=== PATIENT | male | born 1940 ===

== ENCOUNTER 2020-05-05 16:46 | Inpatient (IN) ==
[2020-05-05] MEDS ORDERED: SODIUM CHLORIDE 0.9% 1,000 ML IV STA ×2 (17:11→18:07)
[2020-05-05 17:27] LABS: Basophils % 0.4 % (0.0-0.8); Eosinophils # 0.2 10*3/uL (0.0-0.87); Eosinophils % 2.4 % (0.00-10.9); Hemoglobin 12.4 GM/DL (14.0-18.0); Immature Granulocytes % 0.4 %; Immature Granulocytes Absolute 0.03 #; Lymphocytes # 2.2 10*3/uL (1.4-4.0); Lymphocytes % 26.3 % (21.2-54.2); Mean Corpuscular HGB Conc 33.5 GM/DL (32-36); Mean Corpuscular Volume 97.1 FL (87-102); Mean Platelet Volume 10.2 FL (9.6-12.0); Monocytes % 9.7 % (1.7-12.7); Neutrophils % 60.8 % (38.7-73.9); Platelet Count 220 T/CUMM (130-400); Red Blood Count 3.81 MC/CUMM (3.8-5.5); Red Cell Distribution Width 14.5 % (9.3-17.3); White Blood Count 8.5 T/CUMM (4-12)
[2020-05-05 17:49] LABS: Albumin 3.3 G/DL (3.4-5.0); Bilirubin,Total 0.7 MG/DL (0.2-1.0); Calcium 9.2 MG/DL (8.5-10.1); Osmolality,Calculated 324.7 MOS/KG (273-304); Potassium 4.4 MMOL/L (3.5-5.1); Total Protein 7.1 G/DL (6.4-8.3)
[2020-05-05] MEDS ORDERED: NOREPINEPHRINE 8 MG in SODIUM CHLORIDE 0.9% 242 ML IV SCH (18:00)
[2020-05-05] MEDS ORDERED: ONDANSETRON 4 MG/2 ML VIAL IV PRN (18:11)
[2020-05-05] MEDS ORDERED: LACTATED RINGERS 2,000 ML IV ONE (18:15)
[2020-05-05] MEDS: SODIUM BICARB INJ 150 MEQ in DEXTROSE 5% 850 ML IV SCH (19:28)
[2020-05-06 00:43] LABS: Bacteria,Urine Many /HPF (Few); Bilirubin,Urine Negative (Negative); Blood, Urine Moderate mg/dL (Negative); Glucose,Urine (UA) Negative (Negative); Hyaline Casts,Urine 68 /LPF (0-3); Ketones,Urine Negative (Negative); Mucus,Urine Occasional /LPF (Occasional); Nitrite,Urine Negative (Negative); Protein,Urine 30 MG/DL; RBC,Urine 8 /HPF (0-4); Urine Appearance CLOUDY (Clear); Urine Color Yellow (Yellow); Urine Specific Gravity 1.015 (1.001-1.035); Urine Urobilinogen < 2.0 EU/DL (0.2-1.0); WBC,Urine 728 /HPF (0-6)
[2020-05-06] MEDS: SODIUM BICARB INJ 150 MEQ in DEXTROSE 5% 850 ML IV SCH ×3 (02:52→09:58)
[2020-05-06 05:38] LABS: Basophils % 0.4 % (0.0-0.8); Eosinophils # 0.3 10*3/uL (0.0-0.87); Eosinophils % 3.7 % (0.00-10.9); Hematocrit 31.8 VOL% (42.0-52.0); Hemoglobin 11.1 GM/DL (14.0-18.0); Immature Granulocytes % 0.4 %; Immature Granulocytes Absolute 0.03 #; Lymphocytes # 2.2 10*3/uL (1.4-4.0); Lymphocytes % 29.7 % (21.2-54.2); Mean Corpuscular HGB Conc 34.9 GM/DL (32-36); Mean Corpuscular Volume 93.3 FL (87-102); Mean Platelet Volume 10.1 FL (9.6-12.0); Monocytes % 10.3 % (1.7-12.7); Neutrophils % 55.5 % (38.7-73.9); Platelet Count 175 T/CUMM (130-400); Red Blood Count 3.41 MC/CUMM (3.8-5.5); Red Cell Distribution Width 14.2 % (9.3-17.3); White Blood Count 7.4 T/CUMM (4-12)
[2020-05-06 05:48] LABS: INR 1.1; PT Patient Result 11.9 SECS (9.8-11.9)
[2020-05-06 06:21] LABS: Albumin 2.4 G/DL (3.4-5.0); Bilirubin,Total 0.5 MG/DL (0.2-1.0); Calcium 8.1 MG/DL (8.5-10.1); Osmolality,Calculated 326.8 MOS/KG (273-304); Total Protein 5.8 G/DL (6.4-8.3)
[2020-05-06] MEDS: PANTOPRAZOLE 40 MG TABLET PO SCH (09:13)
[2020-05-06] MEDS ORDERED: POTASSIUM CHLORIDE 20 MEQ TABLET PO ONE (12:17)
[2020-05-06] MEDS: LACTATED RINGERS 1,000 ML IV SCH ×3 (16:00→22:45)
[2020-05-07] MEDS: LACTATED RINGERS 1,000 ML IV SCH ×2 (07:26→09:25)
[2020-05-07 07:38] LABS: Basophils % 0.1 % (0.0-0.8); Eosinophils # 0.3 10*3/uL (0.0-0.87); Eosinophils % 4.6 % (0.00-10.9); Hematocrit 30.4 VOL% (42.0-52.0); Hemoglobin 10.1 GM/DL (14.0-18.0); Immature Granulocytes % 0.3 %; Immature Granulocytes Absolute 0.02 #; Lymphocytes # 2.1 10*3/uL (1.4-4.0); Lymphocytes % 28.5 % (21.2-54.2); Mean Corpuscular HGB Conc 33.2 GM/DL (32-36); Mean Corpuscular Volume 97.4 FL (87-102); Mean Platelet Volume 10.3 FL (9.6-12.0); Monocytes % 10.4 % (1.7-12.7); Neutrophils % 56.1 % (38.7-73.9); Platelet Count 200 T/CUMM (130-400); Red Blood Count 3.12 MC/CUMM (3.8-5.5); Red Cell Distribution Width 14.4 % (9.3-17.3); White Blood Count 7.2 T/CUMM (4-12)
[2020-05-07 08:08] LABS: Uric Acid 13.7 MG/DL (3.5-7.2)
[2020-05-07 08:09] LABS: Albumin 2.4 G/DL (3.4-5.0); Bilirubin,Total 1.7 MG/DL (0.2-1.0); Calcium 8.3 MG/DL (8.5-10.1); Osmolality,Calculated 315.6 MOS/KG (273-304); Potassium 3.1 MMOL/L (3.5-5.1); Total Protein 5.8 G/DL (6.4-8.3)
[2020-05-07] MEDS: PANTOPRAZOLE 40 MG TABLET PO SCH (08:59)
[2020-05-07] MEDS: cefTRIAXone 1,000 MG in SYRINGE 1 EACH IV SCH (08:59)
[2020-05-07] MEDS ORDERED: POTASSIUM CHLORIDE 20 MEQ TABLET PO ONE (09:45)
[2020-05-07 10:09] LABS: % Iron Saturation 19.8 % (18-50); Ferritin 805.1 ng/ml (26-388)
[2020-05-07 10:14] LABS: Free T4 (Free Thyroxine) 1.26 NG/DL (0.76-1.46); Thyroid Stimulating Hormone 1.83 uIU/ml (0.358-3.74)
[2020-05-07 10:17] LABS: Folate 5.7 NG/ML (5.38-24.0)
[2020-05-07] MEDS: SODIUM CHLORIDE 0.45% 1,000 ML IV SCH ×2 (10:54→21:05)
[2020-05-07] MEDS: ENOXAPARIN 30 MG/0.3 ML SYRINGE SUBCUT SCH (10:54)
[2020-05-08 07:01] LABS: Basophils % 0.3 % (0.0-0.8); Eosinophils # 0.5 10*3/uL (0.0-0.87); Eosinophils % 5.9 % (0.00-10.9); Hematocrit 28.6 VOL% (42.0-52.0); Hemoglobin 9.4 GM/DL (14.0-18.0); Immature Granulocytes % 0.3 %; Immature Granulocytes Absolute 0.03 #; Lymphocytes # 2.7 10*3/uL (1.4-4.0); Lymphocytes % 29.7 % (21.2-54.2); Mean Corpuscular HGB Conc 32.9 GM/DL (32-36); Mean Corpuscular Volume 99.3 FL (87-102); Mean Platelet Volume 10.5 FL (9.6-12.0); Monocytes % 9.3 % (1.7-12.7); Neutrophils % 54.5 % (38.7-73.9); Platelet Count 195 T/CUMM (130-400); Red Blood Count 2.88 MC/CUMM (3.8-5.5); Red Cell Distribution Width 14.5 % (9.3-17.3)
[2020-05-08 07:23] LABS: Calcium 7.6 MG/DL (8.5-10.1); Osmolality,Calculated 297.8 MOS/KG (273-304); Potassium 3.1 MMOL/L (3.5-5.1)
[2020-05-08] MEDS: PANTOPRAZOLE 40 MG TABLET PO SCH (08:34)
[2020-05-08] MEDS: cefTRIAXone 1,000 MG in SYRINGE 1 EACH IV SCH (08:35)
[2020-05-08] MEDS ORDERED: MAGNESIUM SULF RIDER 2 GM in PREMIX 1 EACH IV PRN (11:17)
[2020-05-08] MEDS ORDERED: MAGNESIUM SULF RIDER 4 GM in PREMIX 1 EACH IV PRN (11:17)
[2020-05-08] MEDS: ENOXAPARIN 30 MG/0.3 ML SYRINGE SUBCUT SCH (11:52)
[2020-05-08] MEDS: SODIUM CHLORIDE 0.45% 1,000 ML IV SCH ×2 (11:52→19:41)
[2020-05-08] MEDS: POTASSIUM CHLORIDE 20 MEQ TABLET PO PRN (11:58)
[2020-05-09 07:48] LABS: Basophils % 0.3 % (0.0-0.8); Eosinophils # 0.6 10*3/uL (0.0-0.87); Eosinophils % 6.4 % (0.00-10.9); Immature Granulocytes % 0.4 %; Immature Granulocytes Absolute 0.04 #; Lymphocytes # 2.7 10*3/uL (1.4-4.0); Lymphocytes % 28.9 % (21.2-54.2); Mean Corpuscular HGB Conc 32.3 GM/DL (32-36); Mean Corpuscular Volume 100.3 FL (87-102); Mean Platelet Volume 10.1 FL (9.6-12.0); Monocytes % 9.6 % (1.7-12.7); Neutrophils % 54.4 % (38.7-73.9); Platelet Count 226 T/CUMM (130-400); Red Blood Count 3.09 MC/CUMM (3.8-5.5); Red Cell Distribution Width 14.4 % (9.3-17.3); White Blood Count 9.3 T/CUMM (4-12)
[2020-05-09 08:18] LABS: Albumin 2.3 G/DL (3.4-5.0); Bilirubin,Total 0.8 MG/DL (0.2-1.0); Calcium 7.6 MG/DL (8.5-10.1); Osmolality,Calculated 285.1 MOS/KG (273-304); Potassium 3.2 MMOL/L (3.5-5.1); Total Protein 5.7 G/DL (6.4-8.3)
[2020-05-09] MEDS: POTASSIUM PHOS/SOD PHOS POWDER 250 MG PACK PO SCH ×3 (08:23→21:14)
[2020-05-09] MEDS: cefTRIAXone 1,000 MG in SYRINGE 1 EACH IV SCH (08:23)
[2020-05-09] MEDS: ENOXAPARIN 30 MG/0.3 ML SYRINGE SUBCUT SCH (08:23)
[2020-05-09] MEDS: PANTOPRAZOLE 40 MG TABLET PO SCH (08:24)
[2020-05-09] MEDS: POTASSIUM CHLORIDE 20 MEQ TABLET PO PRN (08:28)
[2020-05-09] MEDS ORDERED: MAGNESIUM SULF RIDER 4 GM in PREMIX 1 EACH IV ONE (11:00)
[2020-05-09] MEDS: POTASSIUM CHLORIDE 20 MEQ TABLET PO SCH ×3 (12:36→21:14)
[2020-05-09] MEDS: SODIUM CHLORIDE 0.45% 1,000 ML IV SCH (17:46)
[2020-05-09 19:58] LABS: Calcium 7.9 MG/DL (8.5-10.1); Osmolality,Calculated 286.1 MOS/KG (273-304); Potassium 3.9 MMOL/L (3.5-5.1)
[2020-05-09] MEDS: HYDROCORTISONE 2.5% RECTAL CREAM 30 GM TUBE TOP PRN (21:13)
[2020-05-10 05:46] LABS: Basophils % 0.5 % (0.0-0.8); Eosinophils # 0.5 10*3/uL (0.0-0.87); Eosinophils % 5.7 % (0.00-10.9); Hematocrit 29.7 VOL% (42.0-52.0); Hemoglobin 9.5 GM/DL (14.0-18.0); Immature Granulocytes % 0.3 %; Immature Granulocytes Absolute 0.03 #; Lymphocytes # 2.9 10*3/uL (1.4-4.0); Lymphocytes % 32.9 % (21.2-54.2); Mean Corpuscular Volume 102.1 FL (87-102); Mean Platelet Volume 10.2 FL (9.6-12.0); Monocytes % 9.8 % (1.7-12.7); Neutrophils % 50.8 % (38.7-73.9); Platelet Count 270 T/CUMM (130-400); Red Blood Count 2.91 MC/CUMM (3.8-5.5); Red Cell Distribution Width 14.7 % (9.3-17.3); White Blood Count 8.7 T/CUMM (4-12)
[2020-05-10] MEDS: HYDROCORTISONE 2.5% RECTAL CREAM 30 GM TUBE TOP PRN ×2 (06:33→17:11)
[2020-05-10] MEDS: cefTRIAXone 1,000 MG in SYRINGE 1 EACH IV SCH (09:40)
[2020-05-10] MEDS: ENOXAPARIN 30 MG/0.3 ML SYRINGE SUBCUT SCH (09:40)
[2020-05-10] MEDS: PANTOPRAZOLE 40 MG TABLET PO SCH (09:41)
[2020-05-10] MEDS: POTASSIUM PHOS/SOD PHOS POWDER 250 MG PACK PO SCH ×3 (09:41→20:55)
[2020-05-10] MEDS ORDERED: MORPHINE 4 MG/1 ML VIAL IV PRN (21:58)
[2020-05-11 04:57] LABS: Basophils % 0.3 % (0.0-0.8); Eosinophils # 0.6 10*3/uL (0.0-0.87); Eosinophils % 5.8 % (0.00-10.9); Hematocrit 30.5 VOL% (42.0-52.0); Hemoglobin 9.5 GM/DL (14.0-18.0); Immature Granulocytes % 0.6 %; Immature Granulocytes Absolute 0.06 #; Lymphocytes % 31.1 % (21.2-54.2); Mean Corpuscular HGB Conc 31.1 GM/DL (32-36); Mean Corpuscular Volume 104.1 FL (87-102); Mean Platelet Volume 10.5 FL (9.6-12.0); Neutrophils % 51.2 % (38.7-73.9); Platelet Count 274 T/CUMM (130-400); Red Blood Count 2.93 MC/CUMM (3.8-5.5); Red Cell Distribution Width 14.6 % (9.3-17.3); White Blood Count 9.7 T/CUMM (4-12)
[2020-05-11 05:27] LABS: Potassium 4.1 MMOL/L (3.5-5.1)
[2020-05-11] MEDS: cefTRIAXone 1,000 MG in SYRINGE 1 EACH IV SCH (08:25)
[2020-05-11] MEDS: PANTOPRAZOLE 40 MG TABLET PO SCH (08:26)
[2020-05-11] MEDS: POTASSIUM PHOS/SOD PHOS POWDER 250 MG PACK PO SCH ×3 (08:26→20:10)
[2020-05-11] MEDS ORDERED: BISACODYL 5 MG TABLET PO ONE (12:00)
[2020-05-11] MEDS ORDERED: LIDOCAINE 2% 5 ML VIAL ONE (12:49)
[2020-05-11] MEDS ORDERED: propofoL 200 MG/20 ML VIAL IV ONE (12:49)
[2020-05-11] MEDS ORDERED: PHENYLEPHRINE 1 MG/10 ML SYRINGE IV ONE (12:51)
[2020-05-11] MEDS ORDERED: POLYETHYLENE GLYCOL POWDER 255 GM BOTTLE PO ONE (18:00)
[2020-05-11] MEDS: ACETAMINOPHEN 325 MG TABLET PO PRN (20:10)
[2020-05-12 05:43] LABS: INR 1.1; PT Patient Result 11.7 SECS (9.8-11.9)
[2020-05-12] MEDS ORDERED: LACTATED RINGERS 1,000 ML IV SCH ×2 (08:00)
[2020-05-12] MEDS: cefTRIAXone 1,000 MG in SYRINGE 1 EACH IV SCH (08:49)
[2020-05-12] MEDS ORDERED: LIDOCAINE 2% 5 ML VIAL ONE (13:07)
[2020-05-12] MEDS ORDERED: ETOMIDATE 20 MG/10 ML VIAL IV ONE (13:07)
[2020-05-12] MEDS ORDERED: propofoL 200 MG/20 ML VIAL IV ONE (13:07)
[2020-05-12] MEDS ORDERED: PHENYLEPHRINE 1 MG/10 ML SYRINGE IV ONE (13:07)
[2020-05-12] MEDS: PANTOPRAZOLE 40 MG TABLET PO SCH (14:35)
[2020-05-12] MEDS: POTASSIUM PHOS/SOD PHOS POWDER 250 MG PACK PO SCH ×3 (14:35→21:10)
[2020-05-12] MEDS ORDERED: DILTIAZEM INJ 100 MG in SODIUM CHLORIDE 0.9% 100 ML IV SCH (16:00)
[2020-05-12] MEDS ORDERED: SODIUM CHLORIDE 0.9% 500 ML IV ONE (16:00)
[2020-05-12 16:51] LABS: Basophils % 0.3 % (0.0-0.8); Eosinophils # 0.3 10*3/uL (0.0-0.87); Eosinophils % 3.1 % (0.00-10.9); Hematocrit 31.7 VOL% (42.0-52.0); Hemoglobin 10.1 GM/DL (14.0-18.0); Immature Granulocytes % 0.6 %; Immature Granulocytes Absolute 0.07 #; Lymphocytes # 4.6 10*3/uL (1.4-4.0); Lymphocytes % 40.9 % (21.2-54.2); Mean Corpuscular HGB Conc 31.9 GM/DL (32-36); Monocytes % 9.7 % (1.7-12.7); Neutrophils % 45.4 % (38.7-73.9); Platelet Count 251 T/CUMM (130-400); Red Blood Count 3.02 MC/CUMM (3.8-5.5); Red Cell Distribution Width 14.5 % (9.3-17.3); White Blood Count 11.1 T/CUMM (4-12)
[2020-05-12 17:06] LABS: Calcium 8.9 MG/DL (8.5-10.1); Osmolality,Calculated 285.4 MOS/KG (273-304)
[2020-05-12] MEDS ORDERED: MAGNESIUM SULF RIDER 4 GM in PREMIX 1 EACH IV PRN (17:08)
[2020-05-12] MEDS ORDERED: MAGNESIUM SULF RIDER 2 GM in PREMIX 1 EACH IV PRN (17:08)
[2020-05-12] MEDS ORDERED: HEPARIN DRIP 25,000 UNITS/500 ML PREMIX IV SCH (17:30)
[2020-05-12] MEDS: SODIUM CHLORIDE 0.9% 1,000 ML IV SCH (17:44)
[2020-05-12] MEDS: ACETAMINOPHEN 325 MG TABLET PO PRN (17:45)
[2020-05-12] MEDS ORDERED: DIGOXIN 0.5 MG/2 ML AMP IV ONE (20:23)
[2020-05-13 00:52] LABS: Basophils % 0.4 % (0.0-0.8); Eosinophils % 0.4 % (0.00-10.9); Hematocrit 28.8 VOL% (42.0-52.0); Hemoglobin 9.4 GM/DL (14.0-18.0); Immature Granulocytes % 0.8 %; Immature Granulocytes Absolute 0.06 #; Lymphocytes # 1.8 10*3/uL (1.4-4.0); Lymphocytes % 22.8 % (21.2-54.2); Mean Corpuscular HGB Conc 32.6 GM/DL (32-36); Mean Corpuscular Volume 101.4 FL (87-102); Monocytes % 10.2 % (1.7-12.7); Neutrophils % 65.4 % (38.7-73.9); Platelet Count 225 T/CUMM (130-400); Red Blood Count 2.84 MC/CUMM (3.8-5.5); Red Cell Distribution Width 14.6 % (9.3-17.3); White Blood Count 7.9 T/CUMM (4-12)
[2020-05-13 01:03] LABS: INR 1.1; PT Patient Result 12.1 SECS (9.8-11.9); Partial Thromboplastin Time 71.7 SECS (23.9-33.8)
[2020-05-13 01:09] LABS: Alanine Aminotransferase 33 U/L (16-61); Albumin 2.3 G/DL (3.4-5.0); Alkaline Phosphatase 57 U/L (45-117); Aspartate Amino Transferase 29 U/L (0-37); Bilirubin,Total < 0.39 MG/DL (0.2-1.0); Blood Urea Nitrogen 28 MG/DL (7-18); Calcium 8.2 MG/DL (8.5-10.1); Carbon Dioxide 18 MMOL/L (21-32); Estimated Glom Filtration Rate 48 ML/MIN; Glucose 109 MG/DL (74-106); Osmolality,Calculated 285.4 MOS/KG (273-304); Potassium 4.9 MMOL/L (3.5-5.1); Sodium 140 MMOL/L (136-145); Total Protein 5.9 G/DL (5.0-7.5)
[2020-05-13] MEDS: SODIUM CHLORIDE 0.9% 1,000 ML IV SCH ×3 (02:34→18:06)
[2020-05-13 07:49] LABS: INR 1.2; PT Patient Result 12.4 SECS (9.8-11.9)
[2020-05-13 07:51] LABS: Partial Thromboplastin Time 102.2 SECS (23.9-33.8)
[2020-05-13] MEDS: PANTOPRAZOLE 40 MG TABLET PO SCH (08:52)
[2020-05-13] MEDS: POTASSIUM PHOS/SOD PHOS POWDER 250 MG PACK PO SCH ×3 (08:52→21:06)
[2020-05-13] MEDS: cefTRIAXone 1,000 MG in SYRINGE 1 EACH IV SCH (08:53)
[2020-05-13] MEDS ORDERED: POTASSIUM CHLORIDE RIDER 10 MEQ in PREMIX 1 EACH IV PRN (09:37)
[2020-05-13] MEDS ORDERED: MAGNESIUM SULF RIDER 2 GM in PREMIX 1 EACH IV PRN (09:37)
[2020-05-13] MEDS ORDERED: DIAZEPAM 5 MG TABLET PO ONE (09:37)
[2020-05-13] MEDS ORDERED: diphenhydrAMINE CAP 50 MG CAPSULE PO ONE (09:37)
[2020-05-13] MEDS ORDERED: ALBUTEROL 2.5 MG/3 ML NEB RESP TX PRN (10:05)
[2020-05-13] MEDS ORDERED: methylPREDNISolone SOD SUC 125 MG/2 ML VIAL IV ONE (10:05)
[2020-05-13 10:27] LABS: Hematocrit 30.1 VOL% (42.0-52.0); Hemoglobin 9.4 GM/DL (14.0-18.0)
[2020-05-13] MEDS ORDERED: LIDOCAINE 1% 20 ML VIAL ONE (10:37)
[2020-05-13] MEDS ORDERED: MIDAZOLAM 2 MG/2 ML VIAL ONE (10:47)
[2020-05-13] MEDS ORDERED: HYDROmorphone 2 MG/1 ML VIAL ONE (10:48)
[2020-05-13] MEDS ORDERED: PHENYLEPHRINE 50 MG/5 ML VIAL ONE (12:01)
[2020-05-13] MEDS ORDERED: PHENYLEPHRINE DRIP 40 MG/250 ML PREMIX IV PRN (12:06)
[2020-05-13] MEDS ORDERED: SODIUM CHLORIDE 0.9% 1,000 ML IV PRN (12:53)
[2020-05-13] MEDS: APIXABAN 5 MG TABLET PO SCH ×2 (14:55→21:01)
[2020-05-13 15:02] LABS: Hematocrit 28.9 VOL% (42.0-52.0); Hemoglobin 8.8 GM/DL (14.0-18.0)
[2020-05-13] MEDS ORDERED: DIGOXIN 0.5 MG/2 ML AMP IV ONE (15:45)
[2020-05-13] MEDS ORDERED: DILTIAZEM INJ 100 MG in SODIUM CHLORIDE 0.9% 100 ML IV SCH (16:00)
[2020-05-13] MEDS ORDERED: APIXABAN 5 MG TABLET PO SCH (16:00)
[2020-05-13] MEDS: ASCORBIC ACID 500 MG TABLET PO SCH ×2 (16:07→21:01)
[2020-05-13 22:35] LABS: Hematocrit 31.4 VOL% (42.0-52.0); Hemoglobin 9.2 GM/DL (14.0-18.0)
[2020-05-14] MEDS: SODIUM CHLORIDE 0.9% 1,000 ML IV SCH ×2 (01:56→15:21)
[2020-05-14 03:54] LABS: Hematocrit 27.7 VOL% (42.0-52.0); Immature Granulocytes % 0.6 %; Immature Granulocytes Absolute 0.04 #; Lymphocytes # 1.1 10*3/uL (1.4-4.0); Lymphocytes % 15.4 % (21.2-54.2); Mean Corpuscular HGB Conc 28.9 GM/DL (32-36); Mean Corpuscular Volume 112.6 FL (87-102); Mean Platelet Volume 10.1 FL (9.6-12.0); Monocytes % 5.1 % (1.7-12.7); Neutrophils % 78.9 % (38.7-73.9); Platelet Count 215 T/CUMM (130-400); Red Blood Count 2.46 MC/CUMM (3.8-5.5); Red Cell Distribution Width 14.6 % (9.3-17.3); White Blood Count 7.2 T/CUMM (4-12)
[2020-05-14 04:17] LABS: Hypochromasia 1+; Microcytosis 1+
[2020-05-14 04:18] LABS: Acanthocytes Few; Ovalocytes Slight; Platelet Estimate Adequate
[2020-05-14 04:22] LABS: Calcium 7.8 MG/DL (8.5-10.1); Osmolality,Calculated 291.8 MOS/KG (273-304); Potassium 4.6 MMOL/L (3.5-5.1)
[2020-05-14] MEDS: APIXABAN 5 MG TABLET PO SCH ×2 (08:12→20:48)
[2020-05-14] MEDS: POTASSIUM PHOS/SOD PHOS POWDER 250 MG PACK PO SCH ×3 (08:12→20:49)
[2020-05-14] MEDS: ASCORBIC ACID 500 MG TABLET PO SCH ×2 (08:13→20:49)
[2020-05-14] MEDS: PANTOPRAZOLE 40 MG TABLET PO SCH (08:13)
[2020-05-14 09:44] LABS: Hematocrit 27.9 VOL% (42.0-52.0); Hemoglobin 8.5 GM/DL (14.0-18.0)
[2020-05-14 15:46] LABS: Hematocrit 26.7 VOL% (42.0-52.0); Hemoglobin 7.9 GM/DL (14.0-18.0)
[2020-05-15 05:09] LABS: Basophils % 0.1 % (0.0-0.8); Eosinophils % 0.2 % (0.00-10.9); Hematocrit 23.4 VOL% (42.0-52.0); Hemoglobin 7.3 GM/DL (14.0-18.0); Immature Granulocytes % 0.5 %; Immature Granulocytes Absolute 0.05 #; Lymphocytes # 2.6 10*3/uL (1.4-4.0); Lymphocytes % 27.4 % (21.2-54.2); Mean Corpuscular HGB Conc 31.2 GM/DL (32-36); Mean Corpuscular Volume 105.4 FL (87-102); Monocytes % 8.6 % (1.7-12.7); NRBC # 0.04 10*3/uL; Neutrophils % 63.2 % (38.7-73.9); Platelet Count 221 T/CUMM (130-400); Red Blood Count 2.22 MC/CUMM (3.8-5.5); Red Cell Distribution Width 14.5 % (9.3-17.3); White Blood Count 9.3 T/CUMM (4-12)
[2020-05-15 05:32] LABS: Calcium 7.9 MG/DL (8.5-10.1); Osmolality,Calculated 292.7 MOS/KG (273-304); Potassium 3.7 MMOL/L (3.5-5.1)
[2020-05-15 05:33] LABS: Calcium 7.9 MG/DL (8.5-10.1); Osmolality,Calculated 294.6 MOS/KG (273-304); Potassium 3.7 MMOL/L (3.5-5.1)
[2020-05-15 05:34] LABS: Albumin 2.1 G/DL (3.4-5.0); Bilirubin,Total 0.4 MG/DL (0.2-1.0); Calcium 8.1 MG/DL (8.5-10.1); Osmolality,Calculated 294.6 MOS/KG (273-304); Potassium 3.7 MMOL/L (3.5-5.1); Total Protein 5.5 G/DL (5.0-7.5)
[2020-05-15] MEDS ORDERED: SODIUM CHLORIDE 0.9% 1,000 ML IV PRN (08:32)
[2020-05-15] MEDS: ASCORBIC ACID 500 MG TABLET PO SCH ×2 (08:46→21:17)
[2020-05-15] MEDS: POTASSIUM PHOS/SOD PHOS POWDER 250 MG PACK PO SCH ×3 (08:46→21:17)
[2020-05-15] MEDS: PANTOPRAZOLE 40 MG TABLET PO SCH (08:46)
[2020-05-15] MEDS: AMIODARONE 200 MG TABLET PO SCH ×2 (15:02→21:17)
[2020-05-15 19:21] LABS: Hematocrit 28.7 VOL% (42.0-52.0); Hemoglobin 9.6 GM/DL (14.0-18.0)
[2020-05-15] MEDS: APIXABAN 5 MG TABLET PO SCH (21:17)
[2020-05-16 05:56] LABS: Basophils % 0.4 % (0.0-0.8); Eosinophils # 0.3 10*3/uL (0.0-0.87); Eosinophils % 3.6 % (0.00-10.9); Hematocrit 29.9 VOL% (42.0-52.0); Hemoglobin 9.6 GM/DL (14.0-18.0); Immature Granulocytes % 1.1 %; Immature Granulocytes Absolute 0.09 #; Lymphocytes # 2.5 10*3/uL (1.4-4.0); Lymphocytes % 29.5 % (21.2-54.2); Mean Corpuscular HGB Conc 32.1 GM/DL (32-36); Mean Platelet Volume 9.9 FL (9.6-12.0); NRBC # 0.03 10*3/uL; Neutrophils % 56.4 % (38.7-73.9); Platelet Count 211 T/CUMM (130-400); Red Blood Count 2.99 MC/CUMM (3.8-5.5); Red Cell Distribution Width 15.5 % (9.3-17.3); White Blood Count 8.5 T/CUMM (4-12)
[2020-05-16 06:17] LABS: Osmolality,Calculated 282.3 MOS/KG (273-304)
[2020-05-16 06:20] LABS: Albumin 2.1 G/DL (3.4-5.0); Bilirubin,Total 1.5 MG/DL (0.2-1.0); Calcium 7.7 MG/DL (8.5-10.1); Total Protein 5.3 G/DL (5.0-7.5)
[2020-05-16] MEDS: APIXABAN 5 MG TABLET PO SCH (08:40)
[2020-05-16] MEDS: ASCORBIC ACID 500 MG TABLET PO SCH (08:40)
[2020-05-16] MEDS: PANTOPRAZOLE 40 MG TABLET PO SCH (08:40)
[2020-05-16] MEDS: POTASSIUM PHOS/SOD PHOS POWDER 250 MG PACK PO SCH (08:40)
[2020-05-16] MEDS: AMIODARONE 200 MG TABLET PO SCH (08:40)
[2020-05-16] MEDS ORDERED: ATORVASTATIN 10 MG TABLET PO SCH (09:00)
[2020-05-16 12:23] VITALS: BP 113/75
== END 2020-05-16 15:03 | disposition home health service (06) | DRG 981 ==
LOC: N.ED 16:46 → N.EDINP 18:11 → SUATTDRO 18:11 → N.CC 21:42 → N.5E 05-07 02:31 → N.TELES 05-12 16:28 → N.ICU 05-13 13:45 → N.TELES 05-14 13:16
PROVIDERS: ADMIT Family Medicine; ATTEND Internal Medicine